=== PATIENT | female | born 1995 | race Caucasian/White ===

== ENCOUNTER 2016-06-17 16:29 | Inpatient (IN) | payer OTHER ==
[~2016-06-17 16:29] MED LIST: BUPIVACAINE (PF) 0.25% 30 ML VIAL ONE; SODIUM CHLORIDE 0.9% 100 ML BAG ONE; fentaNYL (PF) 50 MCG/ML 5 ML AMP ONE
[2016-06-17] MEDS ORDERED: LIDOCAINE 1% (PF) 10 MG/ML (30 ML SDV) SQ PRN (18:12)
[2016-06-17] MEDS ORDERED: METHYLERGONOVINE 0.2 MG/ML 1 ML AMP IM PRN (18:12)
[2016-06-17] MEDS ORDERED: OXYTOCIN 10 UNIT/ML 1 ML VIAL IM PRN (18:12)
[2016-06-17] MEDS ORDERED: CARBOPROST TROMETHAMINE 250 MCG/ML 1 ML AMP IM PRN (18:12)
[2016-06-17] MEDS ORDERED: TERBUTALINE 1 MG/ML VIAL SQ PRN (18:12)
[2016-06-17] MEDS ORDERED: AMPICILLIN 2,000 MG in SODIUM CHLORIDE 0.9% 100 ML IVPB STA (18:12)
[2016-06-17] MEDS: LACTATED RINGERS 1,000 ML IV SCH (18:17)
[2016-06-17] MEDS ORDERED: BUTORPHANOL 1 MG/ML 1 ML VIAL IV PRN (18:18)
[2016-06-17 18:53] LABS: Basophils % (A) 0 %; CH 28.8; CHCM 33.9; Eosinophils # (A) 0.2 k/uL (0-0.7); Eosinophils % (A) 1 %; HCT 35.6 % (34.0-46.0); HDW 3.19; HGB 12.1 gm/dL (11.4-16.0); Luc # (Auto) 0.26; Luc % (Auto) 2; Lymphocytes % (A) 15 %; MCH 28.9 pg (25.0-35.0); MCHC 33.9 g/dL (31.0-37.0); MCV 85.2 fL (80.0-100.0); Mean Platelet Volume 6.5; Monocytes # (A) 0.5 k/uL (0-1.0); Monocytes % (A) 4 %; Neutrophils # (A) 10.2 k/uL (1.3-7.7); Neutrophils % (A) 78 %; RBC 4.18 m/uL (3.80-5.40); RDW 13.4 % (11.5-15.5); WBC 13.1 k/uL (4.0-11.0); WBC (Perox) 14.31
[2016-06-17] MEDS: AMPICILLIN 1,000 MG in SODIUM CHLORIDE 0.9% 50 ML IVPB SCH (22:35)
--- NOTE | 2016-06-17 23:32 | P.HPOB ---
History of Present Illness H&P Date: 06/17/16 Chief Complaint: Intrauterine 36 weeks advanced cervical dilation Daniela is a 20-year-old G2 to P1 at 36 weeks 6 days gestation who arrives initially complaining of swelling in her hands and feet but on arrival was having contractions. Initially she dilated from 5 cm to 6 cm and was marya every 2-4 minutes. Over the course of the next several hours given IV hydration and anaphylaxis GBS prophylaxis the contractions began to dissipate. As she is not term the decision to not augment labor was made particular in the face of contractions stopping. She reports that the rest for Precis course had been unremarkable and she was feeling well all the way up until earlier today. Pertinent labs A+ blood type Rh antibody negative. Rubella nonimmune hepatitis B surface antigen and RPR were negative groupie strep was unknown. She had been getting progesterone injections up until last week for history of delivery last time at 34 weeks. Assessment intrauterine at 36 weeks 6 days gestation. Plan observational care through tonight with decisions be made in the morning based on what she is dilated to an effaced as well as whether she begins to contract more not tonight. Past Medical History Past Medical History: No Reported History Additional Past Medical History / Comment(s): ear tubes History of Any Multi-Drug Resistant Organisms: None Reported Past Surgical History: Adenoidectomy Past Anesthesia/Blood Transfusion Reactions: No Reported Reaction Past Psychological History: No Psychological Hx Reported Smoking Status: Never smoker Past Alcohol Use History: None Reported Past Drug Use History: None Reported - Past Family History Father Family Medical History: No Reported History Medications and Allergies Home Medications Medication Instructions Recorded Confirmed Type Pnv with Ca,No.72/Iron/FA 1 tab PO DAILY 04/02/16 06/17/16 History [ Plus Tablet] Allergies Allergy/AdvReac Type Severity Reaction Status Date / Time azithromycin [From Zithromax] Allergy Rash/Hives Verified 06/17/16 16:34 egg AdvReac Nausea & Verified 06/17/16 16:34 Vomiting Exam Osteopathic Statement: *. No significant issues noted on an osteopathic structural exam other than those noted in the History and Physical/Consult. - Vital Signs Vital signs: Vital Signs Temp Pulse Resp BP 06/17/16 18:23 97.3 F L 106 H 18 133/74 Intake and Output 06/17/16 06/17/16 06/18/16 14:59 22:59 06:59 Other: # Voids 1 Weight 68.039 kg Patient Weight 06/18/16 06:59 Weight 68.039 kg - OBG Physical Exam Breast: both: normal (no masses) Abdomen: bowel sounds normal, no diffuse tenderness, no bruit present, no guarding noted, no hepatomegaly, no splenomegaly, no mass Vulva: both: normal Vagina: normal moisture, no discharge Cervix: no lesion, no discharge Uterus: normal size, normal contour Adnexa: both: normal Anus/Rectum: normal perianal skin, no rectal mass, no hemorrhoids, heme negative Results Result Diagrams: 06/17/16 18:32 Abnormal Lab Results - Last 24 Hours (Table) 06/17/16 Range/Units 18:32 WBC 13.1 H (4.0-11.0) k/uL Neutrophils # 10.2 H (1.3-7.7) k/uL
[2016-06-18] MEDS: LACTATED RINGERS 1,000 ML IV SCH (03:18)
[2016-06-18] MEDS: AMPICILLIN 1,000 MG in SODIUM CHLORIDE 0.9% 50 ML IVPB SCH ×2 (03:19→07:18)
[2016-06-18] MEDS ORDERED: OXYTOCIN 30 UNITS/500 ML NS 30 UNIT in SALINE 1 500ML.BAG IV SCH (09:15)
[2016-06-18] MEDS ORDERED: IBUPROFEN 600 MG TAB PO PRN (11:35)
[2016-06-18] MEDS ORDERED: diphenhydrAMINE 50 MG/ML 1 ML VIAL IVP PRN ×2 (11:35)
[2016-06-18] MEDS ORDERED: ACETAMINOPHEN TAB 325 MG TAB PO PRN (11:35)
[2016-06-18] MEDS ORDERED: BENZOCAINE/MENTHOL SPRAY 1 GM/SPRAY AEROSOL TOPICAL PRN (11:35)
[2016-06-18] MEDS ORDERED: LANOLIN CREAM 5 GM TUBE TOPICAL PRN (11:35)
[2016-06-18] MEDS ORDERED: WITCH HAZEL 1 EACH MED..PAD TOPICAL PRN (11:35)
[2016-06-18] MEDS ORDERED: SIMETHICONE 80 MG CHEWABLE PO PRN (11:35)
[2016-06-18] MEDS ORDERED: BUPIVACAINE (PF) 0.25% 25 ML, fentaNYL (PF) 200 MCG in SODIUM CHLORIDE 0.9% 71 ML EPIDURAL ONE (11:35)
[2016-06-18] MEDS ORDERED: diphenhydrAMINE 50 MG CAP PO PRN (11:35)
[2016-06-18] MEDS ORDERED: Acetaminophen-Codeine 300-30mg TAB PO PRN ×2 (11:35)
[2016-06-18] MEDS ORDERED: ZOLPIDEM 5 MG TAB PO PRN (11:35)
[2016-06-18] MEDS ORDERED: HYDROCORTISONE 2.5% RECTAL CREAM 30 GM TUBE RECTAL PRN (11:35)
[2016-06-18] MEDS ORDERED: diphenhydrAMINE 25 MG CAP PO PRN (11:35)
[2016-06-18] MEDS: OXYTOCIN 30 UNITS/500 ML NS 30 UNIT in SALINE 1 500ML.BAG IV SCH (11:45)
[2016-06-18 14:26] VITALS: RESP 16
[2016-06-18] MEDS ORDERED: DIPH,PERTUS(ACELL)TETVAC-LF 0.5 ML VIAL IM ONE (16:41)
[2016-06-18] MEDS ORDERED: MEASLES-MUMPS-RUBELLA VACC/PF 12,500 UNIT/0.5 ML VIAL SQ ONE (16:41)
--- NOTE | 2016-06-18 17:04 | P.PROBDLV ---
Vaginal Delivery Note - . Vaginal Delivery Note: 20-year-old presents at 37 weeks and labor. Her cervix changed to 6 in layers dilated, 70% effaced, and -2 station. She is marya every 2 minutes. heart tones 140-145 with moderate variability and reactive. Amniotomy was performed at 6:50 AM. Clear fluid noted. Pitocin was also started. She did get comfortable with epidural. Her cervix was completely dilated at 10:39 AM, she pushed and delivered a viable male over intact perineum under epidural anesthesia level AM. Head delivered OA, anterior shoulder delivered gentle downward traction followed by posterior shoulder and rest of body. Nose and mouth bulb suctioned, cord clamped and cut, placed on mother's abdomen. Apgars 7, 8, weight 6 lbs. 15 oz. Placenta delivered spontaneously, intact with three-vessel cord at 11:08 AM. Vagina, cervix, perineum were inspected. No lacerations noted. Estimated blood loss 150 mL.
[2016-06-18] MEDS ORDERED: INFLUENZA VACCINE (3YR+) 60 MCG/0.5 ML SYRINGE IM ONE (18:06)
[2016-06-19] MEDS: LACTATED RINGERS 1,000 ML IV SCH (00:06)
[2016-06-19] MEDS: SENNOSIDES-DOCUSATE SODIUM 1 EACH TAB PO SCH ×2 (00:07→08:54)
[2016-06-19] MEDS: OXYTOCIN 30 UNITS/500 ML NS 30 UNIT in SALINE 1 500ML.BAG IV SCH (00:07)
--- NOTE | 2016-06-19 08:28 | P.DS ---
Providers Date of admission: 06/17/16 18:04 Expected date of discharge: 06/19/16 Attending physician: Ly Luu Primary care physician: Stated None - Discharge Diagnosis(es) (1) Normal vaginal delivery Current Visit: Yes Status: Acute Hospital Course: Patient presented in labor. She underwent a normal vaginal delivery and had an uncomplicated post course. Denies N/F, F/C, CP, SOB or calf pain. She will be discharged home PPD #1 in stable condition to follow up with me in 6 weeks. Plan - Discharge Summary New Discharge Prescriptions: Ibuprofen [Motrin] 600 mg PO Q6HR PRN #30 tab PRN Reason: Mild Pain Or Fever >= 100.5 Discharge Medication List Pnv with Ca,No.72/Iron/FA [ Plus Tablet] 1 tab PO DAILY 04/02/16 [ History] Ibuprofen [Motrin] 600 mg PO Q6HR PRN #30 tab 06/19/16 [Rx] Follow up Appointment(s)/Referral(s): Ly Luu DO [Doctor of Osteopathic Medicine] - 6 Weeks Discharge Disposition: HOME SELF-CARE
[2016-06-19 14:37] VITALS: BP 110/61; PULSE 91; TEMP 98.1
== END 2016-06-19 15:10 | disposition home or self-care (01) | DRG 775 ==
LOC: FBPOP 16:29 → 4FBP 18:04
PROVIDERS: ADMIT Obstetrics & Gynecology; ATTEND Obstetrics & Gynecology
PROC: 00HU33Z Insertion of Infusion Device into Spinal Canal, Percutaneous Approach (ICD-10-PCS; principal; 2016-06-18)
PROC: 10E0XZZ Delivery of Products of Conception, External Approach (ICD-10-PCS; principal; 2016-06-18)
PROC: 10907ZC Drainage of Amniotic Fluid, Therapeutic from Products of Conception, Via Natural or Artificial Opening (ICD-10-PCS; principal; 2016-06-18)
PROC: 3E0R3CZ (ICD-10-PCS; principal; 2016-06-18)
DX: O80 Encounter for full-term uncomplicated delivery (principal); Z37.0 Single live birth; Z3A.37 37 weeks gestation of pregnancy
CPT/HCPCS: 59025; 85025; 88307; 90471; 90686; 90707; 90715; 99213

== ENCOUNTER 2017-05-28 18:28 | Emergency (ER) | payer OTHER ==
[2017-05-28 18:48] VITALS: RESP 18; TEMP 99.4
[2017-05-28] MEDS ORDERED: SODIUM CHLORIDE 0.9% 1,000 ML IV STA ×2 (19:22)
[2017-05-28] MEDS ORDERED: HYDROmorphone 1 MG/ML 1 ML SYRINGE IVP STA (19:22)
[2017-05-28] MEDS ORDERED: METOCLOPRAMIDE 5 MG/ML 2 ML VIAL IVP STA (19:22)
[2017-05-28] MEDS ORDERED: PANTOPRAZOLE 40 MG/10 ML VIAL IVP STA (19:26)
--- NOTE | 2017-05-28 19:26 | ED ---
General Adult HPI - General Chief complaint: Headache Stated complaint: Headache Time Seen by Provider: 05/28/17 19:03 Source: patient, family, RN notes reviewed Mode of arrival: wheelchair Limitations: no limitations - History of Present Illness Initial comments: Chief complaint history of present illness is a 21-year-old female who is feeling well with mild headache mild low-grade fever muscle aches and pains no nausea decreased appetite for 2 days. - Related Data Home Medications Medication Instructions Recorded Confirmed Ibuprofen [Motrin] 200 - 400 mg PO Q6HR PRN 05/28/17 05/28/17 Previous Rx's Medication Instructions Recorded Butalb/Acetaminophen/Caffeine 1 cap PO Q6H #10 cap 05/28/17 [Fioricet 50-300-40 mg Capsule] Allergies Allergy/AdvReac Type Severity Reaction Status Date / Time azithromycin [From Zithromax] Allergy Rash/Hives Verified 05/28/17 19:30 egg AdvReac Nausea & Verified 05/28/17 19:30 Vomiting Review of Systems ROS Statement: Those systems with pertinent positive or pertinent negative responses have been documented in the HPI. Review of systems mild headache no photophobia. No nausea, no diarrhea. Decreased appetite. Low-grade temp 99.4 with muscle aches and pains and generally doesn't feel well. Decreased appetite. No neuro deficits. All systems were reviewed. Past medical problems none. Surgeries adenoids and ear tubes. Family history no cancers. Mother did have a TIA. Patient has ALLERGIES to azithromycin and legs. Nonsmoker nondrinker. ROS Other: All systems not noted in ROS Statement are negative. Past Medical History Past Medical History: No Reported History Additional Past Medical History / Comment(s): ear tubes History of Any Multi-Drug Resistant Organisms: None Reported Past Surgical History: Adenoidectomy Past Anesthesia/Blood Transfusion Reactions: No Reported Reaction Past Psychological History: No Psychological Hx Reported Smoking Status: Never smoker Past Alcohol Use History: None Reported Past Drug Use History: None Reported - Past Family History Father Family Medical History: No Reported History General Exam - General Exam Comments Initial Comments: General: The patient is awake and alert, complaining of not feeling well for 2 days. Low -grade temperature muscle aches and pains, headache. Vital signs temp 99.4 pulse 92 respiratory rate 18 pulse ox 99% room air blood pressure 112/70 Eye: Pupils are equal, round and reactive to light, extra-ocular movements are intact ; there is normal conjunctiva bilaterally. No signs of icterus. Ears, nose, mouth and throat: There are moist mucous membranes and no oral lesions. No meningismus. Neck: The neck is supple, there is no tenderness, no anterior cervical lymphadenopathy. Cardiovascular: There is a regular rate and rhythm. No murmur, rub or gallop is appreciated. Respiratory: Lungs are clear to auscultation, respirations are non-labored, breath sounds are equal. No wheezes, stridor, rales, or rhonchi. Gastrointestinal: Soft, non-distended, non-tender abdomen without masses or organomegaly noted. There is no rebound or guarding present. No CVA tenderness. Bowel sounds are unremarkable. Patient states she thinks may be taking too much ibuprofen, she takes 6R milligrams 3 times daily. Back: There is no tenderness to palpation in the midline. There is no obvious deformity. No rashes noted. Musculoskeletal: Normal ROM, no tenderness, There is no pedal edema. There is no calf tenderness or swelling. Sensation intact. Pulses equal bilaterally 2+. Neurological: CN II-XII intact, There are no obvious motor or sensory deficits. Coordination appears grossly intact. Speech is normal. No neuro deficits. Skin: Skin is warm and dry and no rashes or lesions are noted. Psychiatric: Cooperative, appropriate mood & affect, normal judgment. Limitations: no limitations Course Vital Signs 05/28/17 18:45 Temperature 99.4 F Pulse Rate 92 Respiratory 18 Rate Blood Pressure 112/70 O2 Sat by Pulse 99 Oximetry Medical Decision Making - Medical Decision Making Medical decision-making. The patient's white count 6.2 hemoglobin 14.9 hematocrit of 44. Potassium is 4.2 with a BUN of 11 creatinine 0.7 GFR greater than 60. Influenza AB-. Total bilirubin is elevated at 2.3 but no other liver enzymes are elevated. Ultrasound of the right upper quadrant was done and reviewed by radiologist his final impression is ; liver; liver is mildly prominent in size. Hepatic echotexture is a just without focal hepatic abnormalities. Gallbladder gallbladder is within normal limits. No evidence of cholelithiasis or gallbladder wall thickening. Sonography reports a negative Washington sign. Common bile duct is a nondilated measuring 2.5 mm. Increases grossly normal although suboptimally visualized. Right kidney is of normal size. No hydronephrosis. Impression mild hepatomegaly. Right upper quadrant ultrasound was otherwise unremarkable. As read by Dr. Stanton After IV fluid and medications for discomfort was administered. The patient reports feeling significantly better. We discussed mildly elevated total bilirubin and the negative ultrasound. The patient be advised to follow-up with her family physician. The patient will be advised to take Fioricet for headache. - Lab Data Result diagrams: 05/28/17 20:00 05/28/17 20:00 Lab Results 05/28/17 05/28/17 05/28/17 Range/Units 20:00 20:00 20:30 WBC 6.2 (3.8-10.6) k/uL RBC 5.28 (3.80-5.40) m/uL Hgb 14.9 (11.4-16.0) gm/dL Hct 44.1 (34.0-46.0) % MCV 83.6 (80.0-100.0) fL MCH 28.3 (25.0-35.0) pg MCHC 33.8 (31.0-37.0) g/dL RDW 13.8 (11.5-15.5) % Plt Count 215 (150-450) k/uL Neutrophils % 74 % Lymphocytes % 19 % Monocytes % 4 % Eosinophils % 1 % Basophils % 1 % Neutrophils # 4.6 (1.3-7.7) k/uL Lymphocytes # 1.2 (1.0-4.8) k/uL Monocytes # 0.2 (0-1.0) k/uL Eosinophils # 0.1 (0-0.7) k/uL Basophils # 0.0 (0-0.2) k/uL Sodium 139 (137-145) mmol/L Potassium 4.2 (3.5-5.1) mmol/L Chloride 105 (98-107) mmol/L Carbon Dioxide 21 L (22-30) mmol/L Anion Gap 13 mmol/L BUN 11 (7-17) mg/dL Creatinine 0.70 (0.52-1.04) mg/dL Est GFR (MDRD) Af Amer >60 (>60 ml/min/1.73 sqM) Est GFR (MDRD) Non-Af >60 (>60 ml/min/1.73 sqM) Glucose 81 (74-99) mg/dL Calcium 9.7 (8.4-10.2) mg/dL Total Bilirubin 2.3 H (0.2-1.3) mg/dL AST 24 (14-36) U/L ALT 20 (9-52) U/L Alkaline Phosphatase 47 (38-126) U/L Total Protein 7.7 (6.3-8.2) g/dL Albumin 4.5 (3.5-5.0) g/dL Influenza Type A RNA Not Detected (Not Detectd) Influenza Type B (PCR) Not Detected (Not Detectd) Disposition Clinical Impression: Headache Disposition: HOME SELF-CARE Condition: Fair Instructions: Acute Headache (ED) Additional Instructions: Increase fluids. Take Fioricet for headache. Follow-up family physician Prescriptions: Butalb/Acetaminophen/Caffeine [Fioricet 50-300-40 mg Capsule] 1 cap PO Q6H #10 cap Referrals: Jack Fernando MD [Primary Care Provider] - 1-2 days Time of Disposition: 23:38
[2017-05-28 20:12] LABS: Basophils % (A) 1 %; CH 28.5; CHCM 34.3; Eosinophils # (A) 0.1 k/uL (0-0.7); Eosinophils % (A) 1 %; HCT 44.1 % (34.0-46.0); HDW 2.28; HGB 14.9 gm/dL (11.4-16.0); Luc # (Auto) 0.06; Luc % (Auto) 1; Lymphocytes # (A) 1.2 k/uL (1.0-4.8); Lymphocytes % (A) 19 %; MCH 28.3 pg (25.0-35.0); MCHC 33.8 g/dL (31.0-37.0); MCV 83.6 fL (80.0-100.0); Mean Platelet Volume 6.9; Monocytes # (A) 0.2 k/uL (0-1.0); Monocytes % (A) 4 %; Neutrophils # (A) 4.6 k/uL (1.3-7.7); Neutrophils % (A) 74 %; RBC 5.28 m/uL (3.80-5.40); RDW 13.8 % (11.5-15.5); WBC 6.2 k/uL (3.8-10.6)
[2017-05-28 20:20] LABS: ALT 20 U/L (9-52); AST 24 U/L (14-36); Alkaline Phosphatase 47 U/L (38-126); Anion Gap 13 mmol/L; Blood Urea Nitrogen 11 mg/dL (7-17); Calcium 9.7 mg/dL (8.4-10.2); Carbon Dioxide 21 mmol/L (22-30); Chloride 105 mmol/L (98-107); Glucose 81 mg/dL (74-99); Non-African American GFR(MDRD) >60 (>60 ml/min/1.73 sqM); Potassium 4.2 mmol/L (3.5-5.1); Sodium 139 mmol/L (137-145); Total Bilirubin 2.3 mg/dL (0.2-1.3); Total Protein 7.7 g/dL (6.3-8.2)
--- NOTE | 2017-05-28 23:24 | US ---
EXAM: US Abdomen Limited, Right Upper Quadrant CLINICAL HISTORY: Reason: Elevated bilirubin, nausea TECHNIQUE: Real-time ultrasound of the right upper quadrant with image documentation. COMPARISON: No relevant prior studies available. FINDINGS: Liver: Liver is mildly prominent in size. Hepatic echotexture is homogeneous without focal hepatic abnormalities Gallbladder: Gallbladder is within normal limits. No evidence of cholelithiasis or gallbladder wall thickening. Colorer reports negative Washington sign. Common bile duct: Common bile duct is nondilated measuring 2.5 mm Pancreas: Pancreas is grossly normal although suboptimally visualized. Right kidney: Right kidney is of normal size. No hydronephrosis. IMPRESSION: Mild hepatomegaly. Right upper quadrant ultrasound is otherwise unremarkable.
[2017-05-28 23:54] VITALS: BP 107/60; PULSE 70
== END 2017-05-28 23:53 | disposition home or self-care (01) ==
LOC: EC 18:28
DX: R51 Headache (principal); R16.0 Hepatomegaly, not elsewhere classified; E80.7 Disorder of bilirubin metabolism, unspecified; M79.1 Myalgia; R50.9 Fever, unspecified; Z90.49 Acquired absence of other specified parts of digestive tract; Z88.1 Allergy status to other antibiotic agents; Z91.012 Allergy to eggs
CPT/HCPCS: 36415; 80053; 85025; 87502; 76705; 99284; 96374; 96375 ×2; 96361 ×3; J2765; J1170; C9113

== ENCOUNTER 2018-08-07 09:56 | Emergency (ER) | payer OTHER ==
[2018-08-07] MEDS ORDERED: SODIUM CHLORIDE 0.9% 1,000 ML IV STA ×2 (10:38)
[2018-08-07] MEDS ORDERED: MORPHINE SULFATE 4 MG/ML SYRINGE IV STA (10:38)
[2018-08-07] MEDS ORDERED: KETOROLAC 30 MG/ML 1 ML VIAL IVP STA (10:38)
[2018-08-07] MEDS ORDERED: ONDANSETRON 4 MG/2 ML VIAL IVP STA (10:38)
--- NOTE | 2018-08-07 10:45 | ED ---
Abdominal Pain HPI - General Chief Complaint: Abdominal Pain Stated Complaint: fever/nausea Time Seen by Provider: 08/07/18 10:29 Source: patient, RN notes reviewed, old records reviewed Mode of arrival: ambulatory Limitations: no limitations - History of Present Illness Initial Comments: Patient is a 23-year-old female presents emergency room chief complaint of fever , bilateral flank pain rating for the right lower quadrant for the past 3 days. Patient has been alternating Motrin and Tylenol. Tracks emergency department fever 101.5. Patient states that she thought that she had a urinary tract infection 2 weeks ago and was treating it with home remedies. Patient states that she woke up today feeling nauseated and had one episode of vomiting. Patient reports that she's had no chest pain or shortness of breath. She denies abnormal vaginal bleeding or discharge. She currently has the currently enough for an IUD for control methods. - Related Data Home Medications Medication Instructions Recorded Confirmed Ibuprofen [Motrin] 200 - 400 mg PO Q6HR PRN 05/28/17 08/07/18 Dm/Acetaminophen/Doxylamine [Vicks 1 cap PO Q4H PRN 08/07/18 08/07/18 Nyquil Liquicaps] Previous Rx's Medication Instructions Recorded Ciprofloxacin HCl [Cipro] 500 mg PO Q12H 7 Days #14 tab 08/07/18 Ondansetron Odt [Zofran Odt] 4 mg PO Q8HR PRN #12 tab 08/07/18 Allergies Allergy/AdvReac Type Severity Reaction Status Date / Time azithromycin [From Zithromax] Allergy Rash/Hives Verified 08/07/18 11:15 egg AdvReac Nausea & Verified 08/07/18 11:15 Vomiting Review of Systems ROS Statement: Those systems with pertinent positive or pertinent negative responses have been documented in the HPI. ROS Other: All systems not noted in ROS Statement are negative. Past Medical History Past Medical History: No Reported History Additional Past Medical History / Comment(s): ear tubes History of Any Multi-Drug Resistant Organisms: None Reported Past Surgical History: Adenoidectomy Past Anesthesia/Blood Transfusion Reactions: No Reported Reaction Past Psychological History: No Psychological Hx Reported Smoking Status: Never smoker Past Alcohol Use History: None Reported Past Drug Use History: None Reported - Past Family History Father Family Medical History: No Reported History General Exam - General Exam Comments Initial Comments: Patient is a 23-year-old female. Alert and oriented 3. Patient appears in no significant distress. Limitations: no limitations General appearance: alert, in no apparent distress Head exam: Present: atraumatic, normocephalic, normal inspection Eye exam: Present: normal appearance, PERRL, EOMI. Absent: scleral icterus, conjunctival injection, periorbital swelling ENT exam: Present: normal exam, mucous membranes moist Neck exam: Present: normal inspection. Absent: tenderness, meningismus, lymphadenopathy Respiratory exam: Present: normal lung sounds bilaterally. Absent: respiratory distress, wheezes, rales, rhonchi, stridor Cardiovascular Exam: Present: regular rate, normal rhythm, normal heart sounds. Absent: systolic murmur, diastolic murmur, rubs, gallop, clicks GI/Abdominal exam: Present: soft, normal bowel sounds. Absent: distended, tenderness, guarding, rebound, rigid Extremities exam: Present: normal inspection, full ROM, normal capillary refill. Absent: tenderness, pedal edema, joint swelling, calf tenderness Back exam: Present: normal inspection, CVA tenderness (R) Neurological exam: Present: alert, oriented X3, CN II-XII intact Psychiatric exam: Present: normal affect, normal mood Skin exam: Present: warm, dry, intact, normal color. Absent: rash Course Vital Signs 08/07/18 10:18 Temperature 101.6 F H Pulse Rate 105 H Respiratory 18 Rate Blood Pressure 113/75 O2 Sat by Pulse 98 Oximetry Medical Decision Making - Medical Decision Making Patient is a 23-year-old female who presents emergency room today with fever and right-sided back and abdominal pain. She thought she had a urinary tract infection 2 weeks ago treated with home remedies including cranberry juice. Patient presents today for evaluation Patient is a runner 1. She was started on IV fluids given 2 L bolus and lab work obtained. Patient's white blood cell count and history pannus are within normal limits. Lactic acid is normal. Patient's urinalysis is positive for infection. Urine culture completed. Gave the Patient 2 g of Rocephin. Diagnosed with pyelonephritis. We'll discharge the Patient with prescription for antibiotic. I discussed close follow-up with primary care physician. Discharging with nausea medication as well. Patient agrees to treatment plan will comply. Return parameters were discussed. - Lab Data Result diagrams: 08/07/18 10:53 08/07/18 10:53 Lab Results 08/07/18 08/07/18 08/07/18 Range/Units 10:53 10:53 10:53 WBC 11.0 H (3.8-10.6) k/uL RBC 4.84 (3.80-5.40) m/uL Hgb 14.4 (11.4-16.0) gm/dL Hct 42.2 (34.0-46.0) % MCV 87.2 (80.0-100.0) fL MCH 29.7 (25.0-35.0) pg MCHC 34.0 (31.0-37.0) g/dL RDW 12.9 (11.5-15.5) % Plt Count 155 (150-450) k/uL Neutrophils % 88 % Lymphocytes % 5 % Monocytes % 6 % Eosinophils % 0 % Basophils % 0 % Neutrophils # 9.6 H (1.3-7.7) k/uL Lymphocytes # 0.5 L (1.0-4.8) k/uL Monocytes # 0.6 (0-1.0) k/uL Eosinophils # 0.0 (0-0.7) k/uL Basophils # 0.0 (0-0.2) k/uL Sodium 139 (137-145) mmol/L Potassium 4.1 (3.5-5.1) mmol/L Chloride 105 (98-107) mmol/L Carbon Dioxide 23 (22-30) mmol/L Anion Gap 11 mmol/L BUN 7 (7-17) mg/dL Creatinine 0.73 (0.52-1.04) mg/dL Est GFR (CKD-EPI)AfAm >90 (>60 ml/min/1.73 sqM) Est GFR (CKD-EPI)NonAf >90 (>60 ml/min/1.73 sqM) Glucose 100 H (74-99) mg/dL Plasma Lactic Acid Dave 0.7 (0.7-2.0) mmol/L Calcium 9.3 (8.4-10.2) mg/dL Total Bilirubin 1.4 H (0.2-1.3) mg/dL AST 29 (14-36) U/L ALT 29 (9-52) U/L Alkaline Phosphatase 57 (38-126) U/L Total Protein 7.5 (6.3-8.2) g/dL Albumin 4.4 (3.5-5.0) g/dL Amylase <30 L (30-110) U/L Lipase 45 (23-300) U/L Urine Color Urine Appearance (Clear) Urine pH (5.0-8.0) Ur Specific Priddy (1.001-1.035) Urine Protein (Negative) Urine Glucose (UA) (Negative) Urine Ketones (Negative) Urine Blood (Negative) Urine Nitrite (Negative) Urine Bilirubin (Negative) Urine Urobilinogen (<2.0) mg/dL Ur Leukocyte Esterase (Negative) Urine RBC (0-5) /hpf Urine WBC (0-5) /hpf Ur Squamous Epith Cells (0-4) /hpf Urine Bacteria (None) /hpf Urine Mucus (None) /hpf Urine HCG, Qual (Not Detectd) 08/07/18 08/07/18 Range/Units 10:53 10:53 WBC (3.8-10.6) k/uL RBC (3.80-5.40) m/uL Hgb (11.4-16.0) gm/dL Hct (34.0-46.0) % MCV (80.0-100.0) fL MCH (25.0-35.0) pg MCHC (31.0-37.0) g/dL RDW (11.5-15.5) % Plt Count (150-450) k/uL Neutrophils % % Lymphocytes % % Monocytes % % Eosinophils % % Basophils % % Neutrophils # (1.3-7.7) k/uL Lymphocytes # (1.0-4.8) k/uL Monocytes # (0-1.0) k/uL Eosinophils # (0-0.7) k/uL Basophils # (0-0.2) k/uL Sodium (137-145) mmol/L Potassium (3.5-5.1) mmol/L Chloride (98-107) mmol/L Carbon Dioxide (22-30) mmol/L Anion Gap mmol/L BUN (7-17) mg/dL Creatinine (0.52-1.04) mg/dL Est GFR (CKD-EPI)AfAm (>60 ml/min/1.73 sqM) Est GFR (CKD-EPI)NonAf (>60 ml/min/1.73 sqM) Glucose (74-99) mg/dL Plasma Lactic Acid Dave (0.7-2.0) mmol/L Calcium (8.4-10.2) mg/dL Total Bilirubin (0.2-1.3) mg/dL AST (14-36) U/L ALT (9-52) U/L Alkaline Phosphatase (38-126) U/L Total Protein (6.3-8.2) g/dL Albumin (3.5-5.0) g/dL Amylase (30-110) U/L Lipase (23-300) U/L Urine Color Yellow Urine Appearance Cloudy H (Clear) Urine pH 5.5 (5.0-8.0) Ur Specific Priddy 1.010 (1.001-1.035) Urine Protein Trace H (Negative) Urine Glucose (UA) Negative (Negative) Urine Ketones 2+ H (Negative) Urine Blood Small H (Negative) Urine Nitrite Negative (Negative) Urine Bilirubin Negative (Negative) Urine Urobilinogen <2.0 (<2.0) mg/dL Ur Leukocyte Esterase Large H (Negative) Urine RBC 12 H (0-5) /hpf Urine WBC 114 H (0-5) /hpf Ur Squamous Epith Cells 18 H (0-4) /hpf Urine Bacteria Many H (None) /hpf Urine Mucus Rare H (None) /hpf Urine HCG, Qual Not Detected (Not Detectd) Disposition Clinical Impression: Pyelonephritis Disposition: HOME SELF-CARE Condition: Good Instructions (If sedation given, give patient instructions): Urinary Tract Infection in Women (ED) Additional Instructions: Patient is to rest, alternate Motrin and Tylenol for fever and pain. Patient should take the nausea medicine as needed. Completely entire antibiotic prescription. Drink plenty of fluids. Return to emergency department if any alarming signs or symptoms occur. Prescriptions: Ciprofloxacin HCl [Cipro] 500 mg PO Q12H 7 Days #14 tab Ondansetron Odt [Zofran Odt] 4 mg PO Q8HR PRN #12 tab PRN Reason: Nausea Is patient prescribed a controlled substance at d/c from ED?: No Referrals: Jack Fernando MD [Primary Care Provider] - 1-2 days Time of Disposition: 12:26
[2018-08-07 11:22] LABS: Basophils % (A) 0 %; Eosinophils % (A) 0 %; HCT 42.2 % (34.0-46.0); HGB 14.4 gm/dL (11.4-16.0); Lymphocytes # (A) 0.5 k/uL (1.0-4.8); Lymphocytes % (A) 5 %; MCH 29.7 pg (25.0-35.0); MCV 87.2 fL (80.0-100.0); Mean Platelet Volume 6.4; Monocytes # (A) 0.6 k/uL (0-1.0); Monocytes % (A) 6 %; Neutrophils # (A) 9.6 k/uL (1.3-7.7); Neutrophils % (A) 88 %; Platelet Count 155 k/uL (150-450); RBC 4.84 m/uL (3.80-5.40); RDW 12.9 % (11.5-15.5)
[2018-08-07 11:31] LABS: Appearance,Urine Cloudy (Clear); Bacteria,Urine Many /hpf; Bilirubin,Urine Negative (Negative); Blood,Urine Small (Negative); Color,Urine Yellow; Glucose,Urine (UA) Negative (Negative); Ketones,Urine 2+ (Negative); Leukocyte Esterase,Urine Large (Negative); Mucus,Urine Rare /hpf; Nitrite,Urine Negative (Negative); PH, Urine 5.5 (5.0-8.0); Protein,Urine Trace (Negative); RBC,Urine 12 /hpf (0-5); Squamous Epithelial Cell,Urine 18 /hpf (0-4); Urobilinogen,Urine <2.0 mg/dL (<2.0)
[2018-08-07 11:34] LABS: ALT 29 U/L (9-52); AST 29 U/L (14-36); Albumin 4.4 g/dL (3.5-5.0); Alkaline Phosphatase 57 U/L (38-126); Amylase <30 U/L (30-110); Anion Gap 11 mmol/L; Blood Urea Nitrogen 7 mg/dL (7-17); Calcium 9.3 mg/dL (8.4-10.2); Carbon Dioxide 23 mmol/L (22-30); Chloride 105 mmol/L (98-107); Glucose 100 mg/dL (74-99); Lipase 45 U/L (23-300); Potassium 4.1 mmol/L (3.5-5.1); Sodium 139 mmol/L (137-145); Total Bilirubin 1.4 mg/dL (0.2-1.3); Total Protein 7.5 g/dL (6.3-8.2)
[2018-08-07] MEDS ORDERED: cefTRIAXone IN SWFI 1,000 MG/10 ML SYRINGE IVP STA (11:46)
[2018-08-07] MEDS ORDERED: ACETAMINOPHEN TAB 500 MG TAB PO STA (11:47)
[2018-08-07] MEDS ORDERED: SODIUM CHLORIDE 0.9% 1,000 ML IV ONE (12:06)
[2018-08-07 14:17] VITALS: BP 99/64; PULSE 79; RESP 16; TEMP 98.7
== END 2018-08-07 14:15 | disposition home or self-care (01) ==
LOC: EC 09:56
DX: N12 Tubulo-interstitial nephritis, not specified as acute or chronic (principal); Z88.1 Allergy status to other antibiotic agents; Z91.012 Allergy to eggs
CPT/HCPCS: 36415; 80053; 81001; 81025; 82150; 83605; 83690; 85025; 87040; 87086; 96361; 96365; 96375; 99284

== ENCOUNTER 2024-10-16 13:39 | Emergency (ER) | payer OTHER, BC ==
[2024-10-16 14:08] VITALS: TEMP 98.7
--- NOTE | 2024-10-16 14:12 | ED ---
General Adult HPI - General Source: patient, RN notes reviewed Mode of arrival: ambulatory Limitations: no limitations <Walter Barker - Last Filed: 10/16/24 14:10> - General Source: patient, RN notes reviewed Mode of arrival: ambulatory Limitations: no limitations <Bhumika Reyes - Last Filed: 10/16/24 19:05> - General Chief complaint: Nausea/Vomiting/Diarrhea Stated complaint: Vomiting Time Seen by Provider: 10/16/24 13:49 - History of Present Illness Initial comments: Quick note 29-year-old female presents emergency department complaint of worsening headache, migraine, nausea vomiting. Patient states she normally takes Excedrin for headaches. Patient states she is unable to keep anything down patient states she has had increasing vomiting last 24 hours. She does complain of subjective fever, chills, body aches. Patient denies any sick contacts she states that she does not have focal weakness no neck pain or stiffness (Walter Barker) This is a 29-year-old female who presents to the emergency department for headaches, nausea, and vomiting. Patient has a history of headaches and states that they have been worse over the last several days. She lives in [place] and states that she had a CT scan of her brain several months ago revealing some abnormal lesion and she was supposed to get an MRI to follow-up on it. However, she has not yet been doing that. For the last 24 hours she has been unable to keep anything down due to ongoing nausea and vomiting. She does report possible sick contacts. Unsure if her symptoms may be related to the headaches. Denies any abdominal pain or changes to bowel/bladder habits. (Bhumika Reyes) - Related Data Home Medications Medication Instructions Recorded Confirmed Ibuprofen [Motrin] 200 - 400 mg PO Q6HR PRN 05/28/17 08/07/18 Dm/Acetaminophen/Doxylamine [Vicks 1 cap PO Q4H PRN 08/07/18 08/07/18 Nyquil Liquicaps] Previous Rx's Medication Instructions Recorded Ciprofloxacin HCl [Cipro] 500 mg PO Q12H 7 Days #14 tab 08/07/18 Ondansetron Odt [Zofran Odt] 4 mg PO Q8HR PRN #12 tab 08/07/18 Ketorolac [Toradol] 10 mg PO Q6HR PRN #15 tab 10/16/24 Ondansetron Odt [Zofran Odt] 4 mg PO Q8HR PRN #20 tab 10/16/24 Prochlorperazine [Compazine] 10 mg PO Q6H PRN #30 tab 10/16/24 Allergies Allergy/AdvReac Type Severity Reaction Status Date / Time azithromycin [From Zithromax] Allergy Rash/Hives Verified 10/16/24 14:08 egg AdvReac Nausea & Verified 10/16/24 14:08 Vomiting Review of Systems ROS Other: All systems not noted in ROS Statement are negative. <Walter Barker - Last Filed: 10/16/24 14:10> ROS Other: All systems not noted in ROS Statement are negative. <Bhumika Reyes - Last Filed: 10/16/24 19:05> ROS Statement: Those systems with pertinent positive or pertinent negative responses have been documented in the HPI. Past Medical History Past Medical History: No Reported History Additional Past Medical History / Comment(s): ear tubes, History of Any Multi-Drug Resistant Organisms: None Reported Past Surgical History: Adenoidectomy, Tubal Ligation Past Anesthesia/Blood Transfusion Reactions: No Reported Reaction Past Psychological History: No Psychological Hx Reported Past Alcohol Use History: None Reported Past Drug Use History: None Reported - Past Family History Father Family Medical History: No Reported History <Walter Barker - Last Filed: 10/16/24 14:10> General Exam Limitations: no limitations General appearance: alert, in no apparent distress <Walter Barker - Last Filed: 10/16/24 14:10> Limitations: no limitations General appearance: alert, in no apparent distress Head exam: Present: atraumatic, normocephalic, normal inspection Eye exam: Present: normal appearance, PERRL, EOMI. Absent: scleral icterus, conjunctival injection, periorbital swelling Respiratory exam: Present: normal lung sounds bilaterally. Absent: respiratory distress, wheezes, rales, rhonchi, stridor Cardiovascular Exam: Present: regular rate, normal rhythm GI/Abdominal exam: Present: soft, normal bowel sounds. Absent: distended, tenderness, guarding, rebound, rigid Neurological exam: Present: alert, oriented X3, CN II-XII intact Psychiatric exam: Present: normal affect, normal mood Skin exam: Present: warm, dry, intact, normal color. Absent: rash <Bhumika Reyes - Last Filed: 10/16/24 19:05> - General Exam Comments Initial Comments: Visual Physical Exam Vital signs reviewed General: Well-appearing, nontoxic, no acute distress. Head: Normocephalic, atraumatic Eyes: PERRLA, EOMI ENT: Airway patent Chest: Nonlabored breathing Skin: No visual rash, normal skin tone Neuro: Alert and oriented 3 Musculoskeletal: No gross abnormalities (Walter Barker) Course Vital Signs 10/16/24 10/16/24 14:05 17:42 Temperature 98.7 F Pulse Rate 89 90 Respiratory 16 18 Rate Blood Pressure 148/100 134/70 O2 Sat by Pulse 98 99 Oximetry Medical Decision Making <Walter Barker - Last Filed: 10/16/24 14:10> - Lab Data Result diagrams: 10/16/24 15:38 10/16/24 15:38 <Bhumika Reyes - Last Filed: 10/16/24 19:05> - Medical Decision Making I completed the quick note portion of this chart signed Walter Barker PA-C (Walter Barker) This is a 29-year-old female who presents to the emergency department for headaches, nausea, and vomiting. Was pt. sent in by a medical professional or institution? @ -No Did you speak to anyone other than the patient for history? @ -No Did you review nursing and triage notes? @ -Yes, and I agree, it is accurate with regards to the patient's symptoms. Were old charts reviewed? @ -No Differential Diagnosis? @ -Differential Nausea and Vomiting: Gastroenteritis, cholecystitis, appendicitis, pancreatitis, migraine, benign positional vertigo, food borne illness, pyelonephritis, irritable bowel syndrome, influenza, Covid, GERD, incarcerated hernia, intestinal obstruction, this is not meant to be an all-inclusive list. EKG interpreted by me (3pts min.)? @ -Not obtained X-rays interpreted by me (1pt min.)? @ -Not obtained CT interpreted by me (1pt min.)? @ -Not obtained U/S interpreted by me (1pt. min.)? @ -Not obtained What testing was considered but not performed? (CT, X-rays, U/S, labs)? Why? @ -None What meds were considered but not given? Why? @ -None Did you discuss the management of the patient with other professionals? @ -No Did you reconcile home meds? @ -No Was smoking cessation discussed for >3mins.? @ -No Was critical care preformed (if so, how long)? @ -No Were there social determinants of health that impacted care today? How? (Homelessness, low income, unemployed, alcoholism, drug addiction, transportation, low edu. Level, literacy, decrease access to med. care, [facility], rehab)? @ -No Was there de-escalation of care discussed even if they declined? (Discuss DNR or withdrawal of care, Hospice)? @ -No What co-morbidities impacted this encounter? (DM, HTN, Smoking, COPD, CAD, Cancer, CVA, Hep., AIDS, mental health diagnosis, sleep apnea, morbid obesity)? @ -Migraines Was patient admitted / discharged? @ -Discharged. Lab work unremarkable. COVID, influenza, and RSV testing negative. Patient was treated with IV fluids and Zofran with improvement in nausea. Migraine cocktail administered as well containing Toradol, Decadron, and Benadryl. The migraine essentially resolved afterwards. She did have some mild residual nausea that was then treated with Compazine. She was tolerating oral intake and was comfortable with discharge home at that point. Prescription for Zofran, Compazine, and Toradol prescribed with dosing instructions reviewed for any additional symptoms. Advised she slowly advance her diet as tolerated and remain well-hydrated. Patient states that when she returns home she will follow-up with her PCP and follow-up on the MRI that was previously ordered. Patient discharged home in stable condition. Case discussed with ED attending Dr. Restrepo. Return precautions reviewed in depth, the patient is instructed to return to the emergency department with any new, worsening, or concerning symptoms. Patient verbalized understanding. Undiagnosed new problem with uncertain prognosis? @ -None Drug Therapy requiring intensive monitoring for toxicity (Heparin, Nitro, Insulin, Cardizem)? @ -None Were any procedures done? @ -None Diagnosis/symptom? @ -Headache, nausea and vomiting Acute, or Chronic, or Acute on Chronic? @ -Acute Uncomplicated (without systemic symptoms) or Complicated (systemic symptoms)? @ -Uncomplicated Side effects of treatment? @ -None Exacerbation, Progression, or Severe Exacerbation] @ -Not applicable Poses a threat to life or bodily function? @ -No (Bhumika Reyes) - Lab Data Lab Results 10/16/24 10/16/24 10/16/24 Range/Units 15:38 15:38 15:38 WBC 9.21 (4.50-10.00) 10*3/uL RBC 5.11 (4.10-5.20) 10*6/uL Hgb 15.6 H (12.0-15.0) g/dL Hct 44.1 (37.2-46.3) % MCV 86.3 (80.0-97.0) fL MCH 30.5 (27.0-32.0) pg MCHC 35.4 (32.0-37.0) g/dL Plt Count 268 (140-440) 10*3/uL MPV 8.7 L (9.5-12.2) fL Immature Gran % (Auto) 0.2 % Neutrophils % 90.5 % Lymphocytes % 6.4 % Monocytes % 2.5 % Eosinophils % 0.0 % Basophils % 0.4 % Immature Gran # 0.02 (0.00-0.04) 10*3/uL Neutrophils # 8.33 H (1.80-7.70) 10*3/uL Lymphocytes # 0.59 L (0.90-5.00) 10*3/uL Monocytes # 0.23 (0.20-1.00) 10*3/uL Eosinophils # 0.00 L (0.04-0.35) 10*3/uL Basophils # 0.04 (0.00-0.10) 10*3/uL Sodium 140 (137-145) mmol/L Potassium 4.0 (3.5-5.1) mmol/L Chloride 103 (98-107) mmol/L Carbon Dioxide 24 (22-30) mmol/L Anion Gap 13 mmol/L BUN 10 (7-17) mg/dL Creatinine 0.68 (0.52-1.04) mg/dL Est GFR (CKD-EPI)AfAm >90 (>60 ml/min/1.73 sqM) Est GFR (CKD-EPI)NonAf >90 (>60 ml/min/1.73 sqM) Glucose 105 H (74-99) mg/dL Calcium 10.5 H (8.4-10.2) mg/dL Magnesium 1.6 (1.6-2.3) mg/dL Total Bilirubin 1.8 H (0.2-1.3) mg/dL AST 32 (14-36) U/L ALT 23 (4-34) U/L Alkaline Phosphatase 69 (38-126) U/L Total Protein 8.3 H (6.3-8.2) g/dL Albumin 5.1 H (3.5-5.0) g/dL Lipase 51 (23-300) U/L HCG, Qual Not Detected Influenza Type A (PCR) Not Detected (Not Detectd) Influenza Type B (PCR) Not Detected (Not Detectd) RSV (PCR) Not Detected (Not Detectd) SARS-CoV-2 (PCR) Not Detected (Not Detectd) Disposition <Walter Barker - Last Filed: 10/16/24 14:10> Is patient prescribed a controlled substance at d/c from ED?: No Time of Disposition: 17:33 <Bhumika Reyes - Last Filed: 10/16/24 19:05> Clinical Impression: Headache, Nausea and vomiting Disposition: HOME SELF-CARE Condition: Good Instructions (If sedation given, give patient instructions): Acute Headache (ED), Acute Nausea and Vomiting (ED) Additional Instructions: Return to the emergency department with any new, worsening, or concerning symptoms. Take the Toradol with Tylenol as needed for pain relief. If you choose to take the Toradol, do not take any other anti-inflammatories such as ibuprofen, take one or the other. Take the Zofran up to every 8 hours as needed for nausea and vomiting. Take the Compazine up to every 6 hours as needed for nausea and vomiting. Slowly advance your diet as tolerated and remain well- hydrated. Prescriptions: Prochlorperazine [Compazine] 10 mg PO Q6H PRN #30 tab PRN Reason: Nausea And Vomiting Ketorolac [Toradol] 10 mg PO Q6HR PRN #15 tab PRN Reason: Pain Ondansetron Odt [Zofran Odt] 4 mg PO Q8HR PRN #20 tab PRN Reason: Nausea And Vomiting Referrals: None,Stated [Primary Care Provider] - 1-2 days
[2024-10-16] MEDS: SODIUM CHLORIDE 0.9% 1,000 ML IV ONE (15:55)
[2024-10-16] MEDS: ONDANSETRON 4 MG/2 ML VIAL IVP STA (15:56)
[2024-10-16] MEDS: KETOROLAC 15 MG/ML 1 ML VIAL IVP STA (15:59)
[2024-10-16] MEDS: diphenhydrAMINE 50 MG/ML 1 ML VIAL IVP STA (15:59)
[2024-10-16] MEDS: DEXAMETHASONE SOD PHOSPHATE 10 MG/ML 1 ML VIAL IVP STA (15:59)
[2024-10-16 16:05] LABS: Basophils # (A) 0.04 10*3/uL (0.00-0.10); Basophils % (A) 0.4 %; HCT 44.1 % (37.2-46.3); HGB 15.6 g/dL (12.0-15.0); Lymphocytes # (A) 0.59 10*3/uL (0.90-5.00); Lymphocytes % (A) 6.4 %; MCH 30.5 pg (27.0-32.0); MCHC 35.4 g/dL (32.0-37.0); MCV 86.3 fL (80.0-97.0); Mean Platelet Volume 8.7 fL (9.5-12.2); Monocytes # (A) 0.23 10*3/uL (0.20-1.00); Monocytes % (A) 2.5 %; Neutrophils # (A) 8.33 10*3/uL (1.80-7.70); Neutrophils % (A) 90.5 %; Platelet Count 268 10*3/uL (140-440); RBC 5.11 10*6/uL (4.10-5.20); RDW 12.3 % (11.5-14.5); WBC 9.21 10*3/uL (4.50-10.00)
[2024-10-16 16:28] LABS: ALT 23 U/L (4-34); AST 32 U/L (14-36); African American GFR (CKD) >90 (>60 ml/min/1.73 sqM); Albumin 5.1 g/dL (3.5-5.0); Alkaline Phosphatase 69 U/L (38-126); Anion Gap 13 mmol/L; Blood Urea Nitrogen 10 mg/dL (7-17); Calcium 10.5 mg/dL (8.4-10.2); Carbon Dioxide 24 mmol/L (22-30); Chloride 103 mmol/L (98-107); Glucose 105 mg/dL (74-99); Lipase 51 U/L (23-300); Magnesium 1.6 mg/dL (1.6-2.3); Non-African American GFR(CKD) >90 (>60 ml/min/1.73 sqM); Sodium 140 mmol/L (137-145); Total Bilirubin 1.8 mg/dL (0.2-1.3); Total Protein 8.3 g/dL (6.3-8.2)
[2024-10-16 16:42] LABS: Influenza A Not Detected (Not Detectd); Influenza B Not Detected (Not Detectd); RSV Not Detected (Not Detectd)
[2024-10-16 16:58] LABS: HCG,Qualitative Serum Not Detected
[2024-10-16] MEDS: PROCHLORPERAZINE INJ 10 MG/2 ML VIAL IVP STA (17:05)
[2024-10-16 17:43] VITALS: BP 134/70; PULSE 90; RESP 18
== END 2024-10-16 17:45 | disposition home or self-care (01) ==
LOC: EC 13:39
DX: R11.2 Nausea with vomiting, unspecified (principal); G43.909 Migraine, unspecified, not intractable, without status migrainosus; Z11.52 Encounter for screening for COVID-19; Z88.1 Allergy status to other antibiotic agents; Z91.012 Allergy to eggs
CPT/HCPCS: 36415; 80053; 83690; 83735; 85025; 84703; 87636; 99284; 96374; 96375; 96361; J1200; J0780; J1100; J2405; J1885